=== PATIENT | female | born 1970 | race Caucasian/White ===

== ENCOUNTER 2021-04-15 17:30 | Emergency (ER) | payer OTHER, MEDICAID ==
[~2021-04-15] VITALS: Ht 157.5 cm; Wt 90.7 kg
[2021-04-15 17:36] VITALS: BP_SYST 158
--- NOTE | 2021-04-15 17:40 | NUR ---
Patient to ER bed 07 to gown for evaluation. Side rails up.
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
--- NOTE | 2021-04-15 17:45 | NUR ---
ER at bedside examining patient.
--- NOTE | 2021-04-15 18:00 | NUR ---
RADIOLOGY AT BEDSIDE
[2021-04-15] MEDS ORDERED: KETOROLAC TROMETHAMINE 60 MG/2 ML VIAL IM ONE (18:30)
--- NOTE | 2021-04-15 18:59 | NUR ---
called radiology pt. refused earlier to stand up for xray but now will, notified radiology
--- NOTE | 2021-04-15 19:06 | NUR ---
Received report from SHANELLE Estrella for continuation of care
[2021-04-15] MEDS ORDERED: HYDR-3917 PO (19:38)
[2021-04-15] MEDS ORDERED: IBUP-1969 PO (19:38)
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
[2021-04-15 20:08] VITALS: BP_SYST 113
--- NOTE | 2021-04-15 20:08 | NUR ---
Patient given written and verbal discharge instructions and verbalizes understanding. ER MD discussed with patient the results and treatment provided. Patient in stable condition. ID arm band removed. No IV Rx of ibuprofen and norco given. Patient educated on pain management and to follow up with PMD. Pain Scale 5/10. Opportunity for questions provided and answered. Medication side effect fact sheet provided.
== END 2021-04-15 20:08 | disposition home or self-care (01) ==
LOC: SED 17:30
DX: S20.211A Contusion of right front wall of thorax, initial encounter (principal); S99.912A Unspecified injury of left ankle, initial encounter; V49.49XA Driver injured in collision with other motor vehicles in traffic accident, initial encounter; Y93.89 Activity, other specified; Y92.89 Other specified places as the place of occurrence of the external cause; Y99.8 Other external cause status
CPT/HCPCS: 71046; 73090; 73610; 93005; 96372; 99284; J1885